=== PATIENT | female | born 1965 | race Caucasian/White ===

== ENCOUNTER 2024-03-13 10:40 | Emergency (ER) | payer MEDICAID | END 2024-03-13 11:40 | disposition home or self-care (01) | LOC: CC.ED 10:40 | DX: L03.115 Cellulitis of right lower limb (principal); L03.116 Cellulitis of left lower limb; I87.2 Venous insufficiency (chronic) (peripheral); K21.9 Gastro-esophageal reflux disease without esophagitis; J45.909 Unspecified asthma, uncomplicated; I11.0 Hypertensive heart disease with heart failure; I50.9 Heart failure, unspecified; Z88.8 Allergy status to other drugs, medicaments and biological substances; Z88.0 Allergy status to penicillin; Z88.2 Allergy status to sulfonamides; Z79.51 Long term (current) use of inhaled steroids; Z79.82 Long term (current) use of aspirin; Z79.899 Other long term (current) drug therapy; Z95.5 Presence of coronary angioplasty implant and graft; Z90.49 Acquired absence of other specified parts of digestive tract; Z95.1 Presence of aortocoronary bypass graft | CPT/HCPCS: 99283 ==

== ENCOUNTER 2025-08-09 15:46 | Inpatient (IN) | payer MEDICAID ==
[2025-08-09 16:16] LABS: BASOPHILS ABSOLUTE AUTO 0.06 10^3/uL (0.00-0.50); BASOPHILS PERCENT AUTO 0.2 % (0-1); EOSINOPHILS ABSOLUTE AUTO 0.13 10^3/uL (0.00-1.50); EOSINOPHILS PERCENT AUTO 0.3 % (0-6); IMMATURE GRAN ABSOLUTE AUTO 0.58 10^3/uL (0.00-0.49); IMMATURE GRAN PERCENT AUTO 1.6 % (0.0-4.9); LYMPHOCYTES ABSOLUTE AUTO 0.80 10^3/uL (0.60-5.00); LYMPHOCYTES PERCENT AUTO 2.2 % (24-44); MONOCYTES ABSOLUTE AUTO 1.33 10^3/uL (0.00-1.50); MONOCYTES PERCENT AUTO 3.6 % (0-10); NEUTROPHILS ABSOLUTE AUTO 34.30 x10^3/uL (1.80-8.00); NEUTROPHILS PERCENT AUTO 92.1 % (41-71); PLATELET COUNT,PLT 349 10^3/uL (150-400); RED BLOOD CELL COUNT 2.70 x10^6/uL (4.00-5.50)
[2025-08-09 16:17] LABS: WHITE BLOOD CELL COUNT,WBC 37.2 10^3/uL (4.0-11.0)
[2025-08-09 16:35] LABS: ALANINE AMINOTRANSFERASE,ALT 24 U/L (12-78); ASPARTATE AMNIOTRANSFERASE,AST 12 U/L (15-37); BILIRUBIN TOTAL 0.3 mg/dL (0.0-1.0); BLOOD UREA NITROGEN,BUN 10 mg/dL (7-18); CARBON DIOXIDE,CO2 26 mmol/L (21-32); CHLORIDE,CL 101 mEq/L (98-106); CREATININE 1.1 mg/dL (0.6-1.0); GLUCOSE RANDOM 185 mg/dL (75-99); POTASSIUM,K 4.1 mEq/L (3.5-5.0); PROTEIN TOTAL,TP 7.3 g/dL (6.4-8.2); SODIUM,NA 138 mEq/L (136-145)
[2025-08-09 16:39] LABS: ESTIMATED GFR 58 mL/min (>=60)
[2025-08-09] MEDS: Ondansetron 4 MG/2 ML SDV IVPUSH ONE (16:47)
[2025-08-09] MEDS ORDERED: Ondansetron 4 MG/2 ML SDV IV PRN (17:39)
[2025-08-09] MEDS ORDERED: Ondansetron 4 MG Tab.DIS PO PRN (17:39)
[2025-08-09] MEDS: methylPREDNISolone Sodium Succinate 125 MG/2 ML SDV IVPUSH SCH (18:28)
[2025-08-09] MEDS: Potassium Chloride 20 MEQ Tab.ER PO SCH (19:32)
[2025-08-09] MEDS: Formoterol/Mometasone 200-5 MCG 8.8 GM Inhaler INH SCH (19:33)
[2025-08-09 19:59] LABS: APPEARANCE,URINE CLEAR (CLEAR); GLUCOSE,URINE NEGATIVE (NEGATIVE); OCCULT BLOOD,URINE NEGATIVE (NEGATIVE)
[2025-08-09 20:00] LABS: EPITHELIAL CELLS,URINE OCCASIONAL /HPF (NOT SEEN)
[2025-08-10 07:27] LABS: ALANINE AMINOTRANSFERASE,ALT 19.0 U/L (12-78); ASPARTATE AMNIOTRANSFERASE,AST 12.0 U/L (15-37); BILIRUBIN TOTAL 0.3 mg/dL (0.0-1.0); BLOOD UREA NITROGEN,BUN 6.0 mg/dL (7-18); CARBON DIOXIDE,CO2 25.0 mmol/L (21-32); CHLORIDE,CL 104.0 mEq/L (98-106); CREATININE 1.0 mg/dL (0.6-1.0); EST CRCL DRUG DOSING (CG) 50.11 mL/min; GLUCOSE RANDOM 162.0 mg/dL (75-99); POTASSIUM,K 3.7 mEq/L (3.5-5.0); PROTEIN TOTAL,TP 6.8 g/dL (6.4-8.2); SODIUM,NA 139.0 mEq/L (136-145)
[2025-08-10 07:33] LABS: ESTIMATED GFR 65.0 mL/min (>=60)
[2025-08-10 07:49] LABS: BASOPHILS ABSOLUTE AUTO 0.08 10^3/uL (0.00-0.50); BASOPHILS PERCENT AUTO 0.3 % (0-1); EOSINOPHILS ABSOLUTE AUTO 0.22 10^3/uL (0.00-1.50); EOSINOPHILS PERCENT AUTO 0.8 % (0-6); IMMATURE GRAN ABSOLUTE AUTO 1.04 10^3/uL (0.00-0.49); IMMATURE GRAN PERCENT AUTO 3.6 % (0.0-4.9); LYMPHOCYTES ABSOLUTE AUTO 1.02 10^3/uL (0.60-5.00); LYMPHOCYTES PERCENT AUTO 3.6 % (24-44); MONOCYTES ABSOLUTE AUTO 1.84 10^3/uL (0.00-1.50); MONOCYTES PERCENT AUTO 6.4 % (0-10); NEUTROPHILS ABSOLUTE AUTO 24.35 x10^3/uL (1.80-8.00); NEUTROPHILS PERCENT AUTO 85.3 % (41-71); PLATELET COUNT,PLT 351 10^3/uL (150-400); RED BLOOD CELL COUNT 2.43 x10^6/uL (4.00-5.50)
[2025-08-10 07:50] LABS: WHITE BLOOD CELL COUNT,WBC 28.6 10^3/uL (4.0-11.0)
[2025-08-10] MEDS: Potassium Chloride 20 MEQ Tab.ER PO SCH (17:11)
[2025-08-11 07:26] LABS: BASOPHILS ABSOLUTE AUTO 0.07 10^3/uL (0.00-0.50); BASOPHILS PERCENT AUTO 0.3 % (0-1); EOSINOPHILS ABSOLUTE AUTO 0.26 10^3/uL (0.00-1.50); EOSINOPHILS PERCENT AUTO 1.2 % (0-6); IMMATURE GRAN ABSOLUTE AUTO 0.40 10^3/uL (0.00-0.49); IMMATURE GRAN PERCENT AUTO 1.9 % (0.0-4.9); LYMPHOCYTES ABSOLUTE AUTO 0.80 10^3/uL (0.60-5.00); LYMPHOCYTES PERCENT AUTO 3.8 % (24-44); MONOCYTES ABSOLUTE AUTO 1.50 10^3/uL (0.00-1.50); MONOCYTES PERCENT AUTO 7.1 % (0-10); NEUTROPHILS ABSOLUTE AUTO 18.02 x10^3/uL (1.80-8.00); NEUTROPHILS PERCENT AUTO 85.7 % (41-71); PLATELET COUNT,PLT 320 10^3/uL (150-400); RED BLOOD CELL COUNT 2.43 x10^6/uL (4.00-5.50)
[2025-08-11 07:46] LABS: WHITE BLOOD CELL COUNT,WBC 21.1 10^3/uL (4.0-11.0)
[2025-08-11 07:54] LABS: ALANINE AMINOTRANSFERASE,ALT 18.0 U/L (12-78); ASPARTATE AMNIOTRANSFERASE,AST 13.0 U/L (15-37); BILIRUBIN TOTAL 0.3 mg/dL (0.0-1.0); BLOOD UREA NITROGEN,BUN 8.0 mg/dL (7-18); CARBON DIOXIDE,CO2 25.0 mmol/L (21-32); CHLORIDE,CL 104.0 mEq/L (98-106); CREATININE 1.0 mg/dL (0.6-1.0); EST CRCL DRUG DOSING (CG) 50.11 mL/min; ESTIMATED GFR 65.0 mL/min (>=60); GLUCOSE RANDOM 216.0 mg/dL (75-99); POTASSIUM,K 3.8 mEq/L (3.5-5.0); PROTEIN TOTAL,TP 6.8 g/dL (6.4-8.2); SODIUM,NA 139.0 mEq/L (136-145)
[2025-08-12 07:22] LABS: ALANINE AMINOTRANSFERASE,ALT 22.0 U/L (12-78); ASPARTATE AMNIOTRANSFERASE,AST 15.0 U/L (15-37); BILIRUBIN TOTAL 0.2 mg/dL (0.0-1.0); BLOOD UREA NITROGEN,BUN 8.0 mg/dL (7-18); CARBON DIOXIDE,CO2 27.0 mmol/L (21-32); CHLORIDE,CL 104.0 mEq/L (98-106); CREATININE 1.0 mg/dL (0.6-1.0); EST CRCL DRUG DOSING (CG) 50.11 mL/min; GLUCOSE RANDOM 151.0 mg/dL (75-99); POTASSIUM,K 4.3 mEq/L (3.5-5.0); PROTEIN TOTAL,TP 7.0 g/dL (6.4-8.2); SODIUM,NA 141.0 mEq/L (136-145)
[2025-08-12 07:36] LABS: BASOPHILS ABSOLUTE AUTO 0.11 10^3/uL (0.00-0.50); BASOPHILS PERCENT AUTO 0.4 % (0-1); EOSINOPHILS ABSOLUTE AUTO 0.25 10^3/uL (0.00-1.50); EOSINOPHILS PERCENT AUTO 1.0 % (0-6); IMMATURE GRAN ABSOLUTE AUTO 0.60 10^3/uL (0.00-0.49); IMMATURE GRAN PERCENT AUTO 2.4 % (0.0-4.9); LYMPHOCYTES ABSOLUTE AUTO 1.15 10^3/uL (0.60-5.00); LYMPHOCYTES PERCENT AUTO 4.6 % (24-44); MONOCYTES ABSOLUTE AUTO 1.60 10^3/uL (0.00-1.50); MONOCYTES PERCENT AUTO 6.3 % (0-10); NEUTROPHILS ABSOLUTE AUTO 21.54 x10^3/uL (1.80-8.00); NEUTROPHILS PERCENT AUTO 85.3 % (41-71); PLATELET COUNT,PLT 372 10^3/uL (150-400); RED BLOOD CELL COUNT 2.55 x10^6/uL (4.00-5.50)
[2025-08-12 07:39] LABS: ESTIMATED GFR 65.0 mL/min (>=60); WHITE BLOOD CELL COUNT,WBC 25.3 10^3/uL (4.0-11.0)
== END 2025-08-12 10:30 | disposition home or self-care (01) | DRG 871 ==
LOC: CC.ED 15:46 → CC.MS 17:01 → UNDOADMIN 17:27
PROVIDERS: ADMIT Physician Assistant Medical; ATTEND Physician Assistant Medical
DX: A41.9 Sepsis, unspecified organism (principal); J18.9 Pneumonia, unspecified organism; C77.3 Secondary and unspecified malignant neoplasm of axilla and upper limb lymph nodes; D72.829 Elevated white blood cell count, unspecified; C50.919 Malignant neoplasm of unspecified site of unspecified female breast; J45.909 Unspecified asthma, uncomplicated; I11.0 Hypertensive heart disease with heart failure; I50.9 Heart failure, unspecified; K21.9 Gastro-esophageal reflux disease without esophagitis; M06.9 Rheumatoid arthritis, unspecified; F41.9 Anxiety disorder, unspecified; F31.9 Bipolar disorder, unspecified; Z88.8 Allergy status to other drugs, medicaments and biological substances; Z88.2 Allergy status to sulfonamides; Z88.0 Allergy status to penicillin; Z95.5 Presence of coronary angioplasty implant and graft; Z79.82 Long term (current) use of aspirin; Z79.899 Other long term (current) drug therapy; Z90.49 Acquired absence of other specified parts of digestive tract; Z98.890 Other specified postprocedural states
CPT/HCPCS: 36415; 71045; 80053; 81001; 83605; 83880; 85025; 86140; 87040; 87070; 87205; 94640; 96374; 96375; 99223; 99232; 99233; 99238; 99285-25; A9270-GY; J0696; J1642; J1650; J2405; J2919; J7030